=== PATIENT | female | born 1945 | race Hispanic/Latino ===

== ENCOUNTER 2017-11-11 04:51 | Emergency (ER) | payer MEDICARE ==
[2017-11-11] MEDS ORDERED: Ketorolac Tromethamine 30 MG/ML VIAL ONE (05:21)
[2017-11-11] MEDS ORDERED: Ondansetron HCl/PF 4 MG/2 ML Vial ONE (05:21)
[2017-11-11 05:38] LABS: Hemoglobin 14.2 g/dL (12.0-16.0); Mean Corpuscular HGB CONC 34.2 g/dL (32.0-36.0); Mean Corpuscular Hemoglobin 32.7 pg (27.0-31.0); Mean Corpuscular Volume 95.8 fl (81.0-99.0); Platelet Count 197 thou/uL (130-400); RBC Distribution Width 10.9 % (11.5-14.5); Red Blood Cell (RBC) Count 4.33 mill/uL (4.20-5.40); White Blood Cell (WBC) Count 7.7 thou/uL (4.8-10.8)
[2017-11-11 05:39] LABS: #Basophils 0.1 thou/uL (0.0-0.2); #Eosinphils 0.3 thou/uL (0.0-0.7); #Lymphocytes 3.6 thou/uL (1.20-3.40); #Monocytes 0.5 thou/uL (0.11-0.59); #Neutrophils 3.2 thou/uL (1.40-6.50); %Basophils 1.3 % (0.0-1.0); %Eosinophils 3.8 % (0.0-10.0); %Lymphocytes 47.4 % (21.0-51.0); %Monocytes 5.8 % (0.0-10.0); %Neutrophils 41.7 % (42.0-75.0)
[2017-11-11 05:46] LABS: ALT (SGPT) 17 U/L (8-55); AST (SGOT) 21 U/L (5-34); Alkaline Phosphatase 85 U/L (40-150); Anion Gap 16 mmol/L (10-20); BUN (Urea Nitrogen) 9 mg/dL (9.8-20.1); Bilirubin, Total 0.3 mg/dL (0.2-1.2); Calc. Creatinine Clearance 0 mL/min (70-130); Calcium 9.3 mg/dL (7.8-10.44); Carbon Dioxide 23 mmol/L (23-31); Chloride 106 mmol/L (98-107); Estimated GFR-MDRD 77; Globulin 2.8 g/dL (2.4-3.5); Glucose 144 mg/dL (83-110); Lipase 32 U/L (8-78); Potassium 3.6 mmol/L (3.5-5.1); Protein, Total 6.8 g/dL (6.0-8.3); Sodium 141 mmol/L (136-145)
[2017-11-11 05:50] LABS: CKMB 0.9 ng/mL (0-6.6); Troponin I Less than 0.010 ng/mL (< 0.028)
[2017-11-11 06:22] LABS: Bilirubin Negative (Negative); Blood, Urine Trace (Negative); Clarity Clear (Clear); Glucose, Urine (Dipstick) Negative (Negative); Leukocyte Trace (Negative); Nitrite Negative (Negative); Protein, Urine (Dipstick) Negative (Neg-Trace); Specific Gravity, Urine 1.015 (1.005-1.030); Urobilinogen 0.2 mg/dL (0.2-1.0)
[2017-11-11 06:26] LABS: Bacteria/HPF Rare-Few HPF (None Seen); RBC/HPF 0-3 HPF (0-3); Squamous Epithelial 0-3 HPF (0-3); WBC/HPF 0-3 HPF (0-3)
--- NOTE | 2017-11-11 11:09 | CT ---
PRELIMINARY REPORT/[facility]/EMERGENCY AFTER HOURS PROCEDURE: EXAM: CT Abdomen and Pelvis With Intravenous Contrast CLINICAL HISTORY: 72 years old, female; Signs and symptoms; Constipation and nausea and vomiting TECHNIQUE: Axial computed tomography images of the abdomen and pelvis with intravenous contrast. Coronal and sag ittal reformatted images were created and reviewed. COMPARISON: No relevant prior studies available. FINDINGS: Lower thorax: No acute findings. ABDOMEN: Liver: Hepatomegaly and diffuse fatty infiltration No mass. Gallbladder and bile ducts: Unremarkable. No calcified stones. No ductal dilation. Pancreas: Unremarkable. No mass. No ductal dilation. Spleen: Unremarkable. No splenomegaly. Adrenals: Unremarkable. No mass. Kidneys and ureters: Unremarkable. No solid mass. No hydronephrosis. Stomach and bowel: Moderate stool in the colon. Colonic diverticulosis noted. No obstruction. Questio n minimal small bowel mucosal thickening. Appendix: No findings to suggest acute appendicitis. PELVIS: Bladder: Unremarkable. No mass. Reproductive: Unremarkable as visualized. ABDOMEN and PELVIS: Intraperitoneal space: Unremarkable. No free air. No significant fluid collection. Bones/joints: No acute fracture. No dislocation. Soft tissues: Unremarkable. Vasculature: Unremarkable. No abdominal aortic aneurysm. Lymph nodes: Unremarkable. No enlarged lymph nodes. IMPRESSION: Colonic diverticulosis without diverticulitis. Moderate stool in the colon correlate for constipation Minimal enteritis cannot be completely excluded Thank you for allowing us to participate in the care of your patient. Dictated and Authenticated by: Osito Dong MD 11/11/2017 7:00 AM Central Time ([place] & [place]) FINAL REPORT CT ABDOMEN AND PELVIS WITH CONTRAST: Date: 11/11/[address] of the abdomen and pelvis was performed for evaluation of abdominal pain and constipation. Axial slices were acquired, then coronal and sagittal reconstructions were done. IV contrast was give n, but oral was withheld by request. FINDINGS: The lung bases are clear, except for some dependent atelectasis. The liver, spleen, pancreas, adrenal glands, and abdominal aorta show no acute findings. There is eagle y little arteriosclerotic change in the aorta. The kidneys show no solid mass or hydronephrosis. Ther e might be a small parapelvic cyst in the left kidney. A moderate amount of fecal material is present in the colon with no sign of obstruction. Diverticulos is is present, but there is no finding of diverticulitis. Some of the loops of small bowel are fluid- filled and there might be some questionable thickening of its puente. The finding is nonspecific and c ould be normal in this patient or could signify mild enteritis. No free air or free fluid seen. There is a tiny, fat-filled umbilical hernia. CT of the pelvis shows no pelvic masses, fluid collections, or inflammatory changes. There does appea r that there may be a small amount of fluid in the endometrial cavity, somewhat unusual for this age group. An elective ultrasound of the pelvis might be prudent. Degenerative changes are present in the lumbar spine. The wall thickness of the bladder is slightly increased, however, it is not well distended, which cou ld also explain the finding. IMPRESSION: 1. Diverticulosis without diverticulitis. 2. Nondistended fluid-filled loops of small bowel with questionable wall thickening. At most, mild e nteritis might be considered. 3. Apparent small amount of fluid in the endometrial cavity, unusual for the age group. An elective ultrasound might be considered. Report in agreement with the preliminary reading by Emile. POS: HOME
== END 2017-11-11 07:14 | disposition home or self-care (01) ==
LOC: BURERS 04:51
DX: R10.9 Unspecified abdominal pain (principal)
CPT/HCPCS: 74177; 80053; 81003; 81015; 82553; 83605; 83690; 84484; 85025; 93005; 96374; 96375; J1885; J2405

== ENCOUNTER 2023-05-07 07:49 | Emergency (ER) | payer MEDICARE ==
[2023-05-07 08:31] LABS: Bilirubin Negative (Negative); Blood, Urine Trace (Negative); Clarity Clear (Clear); Glucose, Urine (Dipstick) Negative (Negative); Ketone, Urine Negative (Negative); Leukocyte Small (Negative); Nitrite Negative (Negative); Protein, Urine (Dipstick) 100 mg/dL (Neg-Trace); Specific Gravity, Urine 1.015 (1.005-1.030); Urobilinogen 0.2 mg/dL (Less than 2)
[2023-05-07 08:42] LABS: CAUTI Indications for Culture Dysuria,urgency,freq; RBC/HPF 0-3 HPF (0-3)
[2023-05-07 08:43] LABS: Bacteria/HPF Rare-Few HPF (None Seen); Squamous Epithelial 0-3 HPF (0-3); Urine Culture Reflex No No
== END 2023-05-07 09:02 | disposition home or self-care (01) ==
LOC: BURERS 07:49
DX: M54.6 Pain in thoracic spine (principal)
CPT/HCPCS: 71046; 81001